=== PATIENT | female | born 1960 | race Caucasian/White ===

== ENCOUNTER 2022-02-28 10:40 | Outpatient (CLI) | payer BC | END 2022-02-28 10:41 | disposition home or self-care (01) | LOC: CSHMAMMO 10:40 | PROVIDERS: ATTEND Obstetrics & Gynecology | DX: Z12.31 Encounter for screening mammogram for malignant neoplasm of breast (principal) | CPT/HCPCS: 77063; 77067 ==

== ENCOUNTER 2022-07-25 09:54 | Day surgery (SDC) | payer BC ==
[2022-07-23 15:23] VITALS: BMI 41.3
[2022-07-25] MEDS ORDERED: PROPOFOL 20 ML ONE ×3 (11:15→12:48)
[2022-07-25] MEDS ORDERED: Fentanyl 100 MCG/2 ML VIAL ONE (11:15)
[2022-07-25] MEDS ORDERED: Dexamethasone 20 MG/5 ML VIAL ONE (11:15)
[2022-07-25] MEDS ORDERED: Ondansetron PF 4 MG/2 ML Vial ONE (11:15)
[2022-07-25] MEDS ORDERED: Lidocaine 4% PF 5 ML AMP ONE (11:16)
[2022-07-25] MEDS ORDERED: Ketorolac Tromethamine 30 MG/ML VIAL ONE (11:16)
[2022-07-25] MEDS ORDERED: CEFAZOLIN 2 GM VIAL ONE (11:49)
[2022-07-25] MEDS ORDERED: Esmolol 100 MG/10 ML VIAL ONE (12:39)
[2022-07-25] MEDS ORDERED: Metoprolol Tartrate 5 MG/5 ML VIAL ONE (12:50)
[2022-07-25] MEDS ORDERED: Acetaminophen 120 MG Suppository ONE (17:03)
== END 2022-07-25 15:00 | disposition home or self-care (01) ==
LOC: CSHSDC 09:54
PROVIDERS: ATTEND Obstetrics & Gynecology
PROC: 0UB98ZZ Excision of Uterus, Via Natural or Artificial Opening Endoscopic (ICD-10-PCS; principal; 2022-07-25)
DX: N84.0 Polyp of corpus uteri (principal); E03.9 Hypothyroidism, unspecified; I10 Essential (primary) hypertension; E78.5 Hyperlipidemia, unspecified; Z90.49 Acquired absence of other specified parts of digestive tract; Z79.899 Other long term (current) drug therapy; Z79.890 Hormone replacement therapy; Z88.2 Allergy status to sulfonamides
CPT/HCPCS: 88305; J1100; J1885; J2405; J2704; J3010

== ENCOUNTER 2024-09-20 10:30 | Outpatient (CLI) | payer BC | END 2024-09-20 10:31 | disposition home or self-care (01) | LOC: CSHMAMMO 10:30 | PROVIDERS: ATTEND Obstetrics & Gynecology | DX: Z12.31 Encounter for screening mammogram for malignant neoplasm of breast (principal) | CPT/HCPCS: 77063; 77067 ==